=== PATIENT | female | born 1965 | race Caucasian/White ===

== ENCOUNTER 2018-07-23 14:35 | Emergency (ER) | payer OTHER ==
[~2018-07-23] VITALS: Ht 162.6 cm; Wt 78.0 kg
[2018-07-23 14:38] VITALS: BP_SYST 128
[2018-07-23] MEDS ORDERED: DIPH-TET-PERTUS Vaccine 0.5 ML VIAL (ADACEL) I.M. ONE (15:00)
[2018-07-23] MEDS ORDERED: SODIUM BICARBONATE 8.4% VIAL 50 MEQ/50 ML VIAL INJ ONE (15:00)
[2018-07-23] MEDS ORDERED: LIDOCAINE 1% 10 MG/ML, 20 ML MDV INJ ONE (15:00)
[2018-07-23] MEDS ORDERED: BACITRACIN 1 GM OINT TP ONE (15:00)
[2018-07-23 16:30] VITALS: BP_SYST 117
== END 2018-07-23 16:28 | disposition home or self-care (01) ==
LOC: SED 14:35
DX: S61.212A Laceration without foreign body of right middle finger without damage to nail, initial encounter (principal); Z88.6 Allergy status to analgesic agent; Z88.5 Allergy status to narcotic agent; W45.8XXA Other foreign body or object entering through skin, initial encounter; Y93.89 Activity, other specified; Y92.89 Other specified places as the place of occurrence of the external cause; Y99.8 Other external cause status
CPT/HCPCS: 12001; 90471; 90715; 99283; J2001